=== PATIENT | female | born 1940 | race Caucasian/White ===

== ENCOUNTER 2016-10-26 17:11 | Emergency (ER) | payer MEDICARE, BC ==
[2016-10-26 17:32] VITALS: BP 141/91
--- NOTE | 2016-10-26 17:47 | EDM.PDOC ---
ED HPI GENERAL MEDICAL PROBLEM - General Chief Complaint: Flank Pain Stated Complaint: BACK PAIN/VOMITING Time Seen by Provider: 10/26/16 17:40 Source of Information: Reports: Patient History Limitations: Reports: No Limitations - History of Present Illness INITIAL COMMENTS - FREE TEXT/NARRATIVE: 76-year-old female who 4 hours ago while driving a car developed very sudden right-sided flank pain and nausea. She has had persistent pain since that time as well as persistent nausea and several episodes of vomiting. She has no abdominal pain, chest pain, shortness of breath or fever. No dysuria or other urinary symptoms. No previous symptoms similar to what she is having now. Onset: Sudden Duration: Hour(s): (4 hours ago) Location: Reports: Other (Right flank) Quality: Reports: Sharp, Stabbing Severity: Severe Improves with: Reports: None Worsens with: Reports: None Associated Symptoms: Reports: Nausea/Vomiting. Denies: Fever/Chills, Loss of Appetite, Shortness of Breath Right Flank Pain Score (Numeric/FACES): 9 - Related Data Allergies Allergy/AdvReac Type Severity Reaction Status Date / Time No Known Allergies Allergy Verified 10/26/16 17:34 Home Meds: Home Meds Atenolol 25 mg PO DAILY 07/03/15 [History] Diltiazem HCl [Cardizem Cd] 120 mg PO DAILY 07/03/15 [History] Losartan [Cozaar] 100 mg PO DAILY 07/03/15 [History] Ondansetron 1 tab PO Q8H MDD nausea 05/15/16 [History] Warfarin [Coumadin] 2.5 mg PO DAILY 05/15/16 [History] LORazepam 0.5 mg PO Q4H PRN #12 tablet 05/17/16 [Rx] Past Medical History HEENT History: Reports: Impaired Vision, Other (See Below) Other HEENT History: nerve problem with left eye Cardiovascular History: Reports: Hypertension Respiratory History: Reports: Pneumonia, Recurrent Gastrointestinal History: Reports: Colon Polyp, GERD, Hiatal Hernia 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: Musculoskeletal History: Reports: Osteoarthritis Other Musculoskeletal History: Trigger finger Neurological History: Reports: Headaches, Chronic, Other (See Below) Other Neuro History: 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 Hematologic History: Reports: Anticoagulation Therapy - Past Surgical History Head Surgeries/Procedures: Reports: None GI Surgical History: Reports: Appendectomy, Colonoscopy, Hernia, Abdominal Social & Family History - Family History Family Medical History: Noncontributory Cardiac: Reports: None - Tobacco Use Smoking Status *Q: Never Smoker Second Hand Smoke Exposure: No - Caffeine Use Caffeine Use: Reports: Coffee, Tea - Alcohol Use Days Per Week of Alcohol Use: 0 - Recreational Drug Use Recreational Drug Use: No ED ROS GENERAL - Review of Systems Review Of Systems: See Below Constitutional: Denies: Fever, Chills HEENT: Reports: No Symptoms Respiratory: Denies: Shortness of Breath, Cough Cardiovascular: Denies: Chest Pain GI/Abdominal: Reports: Nausea, Vomiting. Denies: Abdominal Pain : Reports: Flank Pain. Denies: Discharge, Dysuria, Frequency Musculoskeletal: Reports: No Symptoms Skin: Reports: No Symptoms Neurological: Reports: No Symptoms Psychiatric: Reports: No Symptoms ED EXAM, GENERAL - Physical Exam Exam: See Below Exam Limited By: No Limitations General Appearance: Alert, Anxious, Mild Distress (Looks fairly uncomfortable but refusing pain medications initially) Respiratory/Chest: No Respiratory Distress, Lungs Clear Cardiovascular: Regular Rate, Rhythm GI/Abdominal: Soft, Non-Tender Back Exam: Other (I can not reproduce her pain with palpation) Extremities: Pedal Edema (Slight edema of the left lower extremity which is chronic) Neurological: Alert, Oriented, No Motor/Sensory Deficits Psychiatric: Anxious Skin Exam: Warm, Dry Course - Vital Signs Last Recorded V/S: Last Vital Signs Temp 98.1 F 10/26/16 17:34 Pulse 86 10/26/16 17:34 Resp 16 10/26/16 17:34 BP 141/91 H 10/26/16 17:34 Pulse Ox 97 10/26/16 17:34 - Orders/Labs/Meds Labs: Laboratory Tests 10/26/16 Range/Units 17:35 Urine Color Yellow Urine Appearance Cloudy Urine pH 6.0 (4.5-8.0) Ur Specific [place] 1.015 (1.008-1.030) Urine Protein Trace (NEGATIVE) mg/dL Urine Glucose (UA) Normal (NEGATIVE) mg/dL Urine Ketones Negative (NEGATIVE) mg/dL Urine Occult Blood Large (NEGATIVE) Urine Nitrite Negative (NEGATIVE) Urine Bilirubin Negative (NEGATIVE) Urine Urobilinogen 1 (NORMAL) mg/dL Ur Leukocyte Esterase Large (NEGATIVE) Urine RBC Semi-packed H (0-5) Urine WBC Semi-packed H (0-5) Ur Epithelial Cells Many Amorphous Sediment Not seen Urine Bacteria Many Urine Mucus Few Meds: Medications Discontinued Medications Generic Name Dose Route Start Last Admin Trade Name Carlos PRN Reason Stop Dose Admin Sodium Chloride 1,000 mls @ 1,000 mls/hr 10/26/16 18:30 10/26/16 18:34 Normal Saline IV 1,000 mls/hr ASDIRECTED STEPHEN Administration Sodium Chloride 1,000 mls @ 150 mls/hr 10/26/16 18:45 10/26/16 18:48 Normal Saline IV 150 mls/hr ASDIRECTED STEPHEN Administration Ketorolac Tromethamine 30 mg 10/26/16 18:28 10/26/16 18:32 Toradol IVPUSH 10/26/16 18:29 30 mg ONETIME ONE Administration Ondansetron HCl 4 mg 10/26/16 18:13 10/26/16 18:26 Zofran Odt PO 10/26/16 18:14 4 mg ONETIME ONE Administration Tamsulosin HCl 0.4 mg 10/26/16 18:12 10/26/16 18:26 Flomax PO 10/26/16 18:13 0.4 mg ONETIME ONE Administration - Re-Assessments/Exams Free Text/Narrative Re-Assessment/Exam: 10/26/16 17:50 A UA was collected and the patient was sent for a CT scan of the abdomen and pelvis without contrast. 10/26/16 18:17 UA shows packed RBCs WBCs bacteria but also many epithelial cells. Obviously contaminated. The CT scan confirms a distal right ureteral stone with mild hydronephrosis, the stone appears to be 2 mm at the UVJ. 10/26/16 18:29 An IV was started and the patient was given 1 L of normal saline along with 30 mg of Toradol IV after 4 mg of sublingual Zofran. Departure - Departure Time of Disposition: 19:57 Disposition: Home, Self-Care 01 Condition: fair Clinical Impression: Ureteric colic, Right nephrolithiasis - Discharge Information Instructions: Kidney Stones Referrals: PCP,None [Primary Care Provider] - Forms: ED Department Discharge Care Plan Goals: Drink lots of water, use ketorolac every 6-8 hours for pain and Zofran under your tongue for nausea if needed. Return in 12-24 hours if not significantly improved or anytime sooner if worsening or concerns.
[2016-10-26] MEDS ORDERED: Ketorolac 60 MG/2 ML SDV IM ONE (18:12)
[2016-10-26] MEDS ORDERED: Tamsulosin 0.4 MG Cap.ER PO ONE (18:12)
[2016-10-26] MEDS ORDERED: Ondansetron 4 MG Tab.DIS PO ONE (18:13)
[2016-10-26] MEDS ORDERED: Ketorolac 30 MG/ML SDV IVPUSH ONE (18:28)
[2016-10-26] MEDS ORDERED: Sodium Chloride 0.9% 1,000 ML IV SCH ×2 (18:30→18:45)
== END 2016-10-26 19:57 | disposition home or self-care (01) ==
LOC: JP.ED 17:11
DX: N13.2 Hydronephrosis with renal and ureteral calculous obstruction (principal); I10 Essential (primary) hypertension; K21.9 Gastro-esophageal reflux disease without esophagitis; Z90.49 Acquired absence of other specified parts of digestive tract; Z98.890 Other specified postprocedural states; Z79.01 Long term (current) use of anticoagulants; Z79.899 Other long term (current) drug therapy
CPT/HCPCS: 74176; 81001; 96361; 96374; 99284; A9270; J1885; J7040

== ENCOUNTER 2017-02-01 17:32 | Emergency (ER) | payer MEDICARE, BC ==
[2017-02-01 17:50] VITALS: BP 136/79
[2017-02-01] MEDS ORDERED: Diphtheria,Pertussis(Acell),Tetanus Vaccine 0.5 ML SDV IM ONE (18:28)
[2017-02-01] MEDS ORDERED: Lidocaine 1% PF 2 ML SDV INJECT ONE (18:29)
--- NOTE | 2017-02-01 18:32 | EDM.PDOC ---
ED HPI GENERAL MEDICAL PROBLEM - General Chief Complaint: General Stated Complaint: FISH HOOK Time Seen by Provider: 02/01/17 18:20 Source of Information: Reports: Patient, Old Records History Limitations: Reports: No Limitations - History of Present Illness INITIAL COMMENTS - FREE TEXT/NARRATIVE: 76 yo female reached into a tackle box today and accidentally got impaled by a fish hook. Here now for removal. Tetanus not UTD. 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: Other (see below) (none) Right 3-Middle finger Pain Score (Numeric/FACES): 6 - Related Data Allergies Allergy/AdvReac Type Severity Reaction Status Date / Time No Known Allergies Allergy Verified 02/01/17 17:54 Home Meds: Home Meds Atenolol 25 mg PO DAILY 07/03/15 [History] Diltiazem HCl [Cardizem Cd] 120 mg PO DAILY 07/03/15 [History] Losartan [Cozaar] 100 mg PO DAILY 07/03/15 [History] LORazepam 0.5 mg PO Q4H PRN #12 tablet 05/17/16 [Rx] Past Medical History HEENT History: Reports: Impaired Vision, Other (See Below) Other HEENT History: nerve problem with left eye Cardiovascular History: Reports: Hypertension Respiratory History: Reports: Pneumonia, Recurrent Gastrointestinal History: Reports: Colon Polyp, GERD, Hiatal Hernia Genitourinary History: Reports: Renal Calculus 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: Musculoskeletal History: Reports: Osteoarthritis Other Musculoskeletal History: Trigger finger Neurological History: Reports: Headaches, Chronic, Other (See Below) Other Neuro History: 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 Hematologic History: Reports: Anticoagulation Therapy - Past Surgical History Head Surgeries/Procedures: Reports: None GI Surgical History: Reports: Appendectomy, Colonoscopy, Hernia, Abdominal Social & Family History - Family History Family Medical History: Noncontributory Cardiac: Reports: None - Tobacco Use Smoking Status *Q: Never Smoker Second Hand Smoke Exposure: No - Caffeine Use Caffeine Use: Reports: Coffee - Alcohol Use Days Per Week of Alcohol Use: 0 - Recreational Drug Use Recreational Drug Use: No ED ROS GENERAL - Review of Systems Review Of Systems: See Below Constitutional: Reports: No Symptoms Skin: Reports: Wound (finger puncture) Neurological: Reports: No Symptoms Psychiatric: Reports: No Symptoms ED EXAM, GENERAL - Physical Exam Exam: See Below Exam Limited By: No Limitations General Appearance: Alert, WD/WN, No Apparent Distress Extremities: Other (fish hook impaled in R long finger tip) Neurological: Alert, Oriented, CN II-XII Intact, Normal Cognition, No Motor/ Sensory Deficits Psychiatric: Normal Affect, Normal Mood Skin Exam: Warm, Dry, Normal Color, No Rash, Wound/Incision (single jacky of fish hook lodged in the tip of her R long finger. No active bleeding or sign of infection. ) Lymphatic: No Adenopathy ED GENERAL MEDICAL PROCEDURES - Laceration/Wound Repair Right Finger Appearance: Subcutaneous Distal NVT: Neuro & Vascular Intact, No Tendon Injury Anesthetic Type: Local Local Anesthesia - Lidocaine (Xylocaine): 1% Plain Local Anesthetic Volume: 2cc Skin Prep: Providone-Iodine (Betadine) Drain Placement: No Sterile Dressing Applied: Nurse Tetanus Status Addressed: Yes Progress/Comments: Fish hook removal after local infiltration with 2 ml of 1% lidocaine by covering jacky with an 18 g. needle and backing it out. Course - Vital Signs Last Recorded V/S: Last Vital Signs Temp 36.5 C 02/01/17 17:54 Pulse 73 02/01/17 17:54 Resp 16 02/01/17 17:54 BP 136/79 02/01/17 17:48 Pulse Ox 96 02/01/17 17:54 - Orders/Labs/Meds Orders: Active Orders 24 hr Category Date Time Status Vaccines to be Administered [RC] PER UNIT ROUTINE Care 02/01/17 18:29 Active Meds: Medications Discontinued Medications Generic Name Dose Route Start Last Admin Trade Name Freq PRN Reason Stop Dose Admin Diphtheria/Tetanus/Acell Pertussis 0.5 ml 02/01/17 18:28 Adacel IM 02/01/17 18:29 .ONCE ONE Lidocaine HCl 2 ml 02/01/17 18:29 Xylocaine-Mpf 1% INJECT 02/01/17 18:30 ONETIME ONE Lidocaine HCl 5 ml 02/01/17 18:32 Xylocaine-Mpf 1% INJECT 02/01/17 18:33 ONETIME ONE Departure - Departure Time of Disposition: 19:00 Disposition: Home, Self-Care 01 Condition: Good Clinical Impression: Fish hook injury of finger Qualifiers: Encounter type: initial encounter Laterality: right Qualified Code(s): S69.91XA - Unspecified injury of right wrist, hand and finger(s), initial encounter - Discharge Information Referrals: PCP,None [Primary Care Provider] - Forms: ED Department Discharge Additional Instructions: Clean wound twice daily with soap and water. Dry. Apply antibiotic ointment and a new dressing. Recheck for signs of infection. Take acetaminophen as needed for pain relief. - My Orders Last 24 Hours: My Active Orders 02/01/17 18:29 Vaccines to be Administered [RC] PER UNIT ROUTINE - Assessment/Plan Last 24 Hours: My Active Orders 02/01/17 18:29 Vaccines to be Administered [RC] PER UNIT ROUTINE
== END 2017-02-01 19:09 | disposition home or self-care (01) ==
LOC: JP.ED 17:32
DX: S60.452A Superficial foreign body of right middle finger, initial encounter (principal); I10 Essential (primary) hypertension; K21.9 Gastro-esophageal reflux disease without esophagitis; M19.90 Unspecified osteoarthritis, unspecified site; Z23 Encounter for immunization; Z90.49 Acquired absence of other specified parts of digestive tract; Z98.890 Other specified postprocedural states; Z79.899 Other long term (current) drug therapy; Z87.01 Personal history of pneumonia (recurrent); W45.8XXA Other foreign body or object entering through skin, initial encounter
CPT/HCPCS: 10120; 90471; 90715; 99283-25

== ENCOUNTER 2018-10-26 15:18 | Observation (INO) | payer MEDICARE, BC ==
[2018-10-26] MEDS ORDERED: Alum Hydrox/Mag Hydrox/Simeth 15 ML, Lidocaine 2% 15 ML PO ONE ×2 (16:04)
--- NOTE | 2018-10-26 16:10 | EDM.PDOC ---
ED HPI GENERAL MEDICAL PROBLEM - General Chief Complaint: Cardiovascular Problem Stated Complaint: HEART Time Seen by Provider: 10/26/18 16:05 Source of Information: Reports: Patient (neighbor, jacky, sangeetha Irwin to ER today ) History Limitations: Reports: No Limitations - History of Present Illness INITIAL COMMENTS - FREE TEXT/NARRATIVE: Alida is an alert pleasant 78-year-old female presents with abrupt onset of diaphoresis, dizziness, epigastric abdominal discomfort, increase respiratory effort and chest pressure. Patient states she had lunch at approximately noon today she was done with most of her chores for the day therefore 2:00 she went to lay down on her culture and pulled her blanket up. While laying on her couch , she had an episode of dizziness may have passed out sweaty and diaphoretic. Due to patient not feeling well and concerned, she contacted her neighbor, Jacky , who came over to see her a felt that she need to be evaluated in the emergency room. Alida attempted to get up and find her blood pressure cuff but continued to feel dizzy and nauseated, she noted a slight headache. Patient states the nausea, chest pressure and heartburn has resolved for the most part. She continues to feel dizziness with movement. Alida is concern regarding the dizziness and blacking out that is new for her. Patient states the nausea, headache and chest pressure is resolved at this point in time. Onset: Today, Sudden Onset Date: 10/26/18 Onset Time: 14:00 Duration: Improving Location: Reports: Chest, Abdomen Improves with: Reports: None Worsens with: Reports: None Chest Pain Score (Numeric/FACES): 7 - Related Data Allergies Allergy/AdvReac Type Severity Reaction Status Date / Time No Known Allergies Allergy Verified 10/03/18 11:06 Home Meds: Home Meds Diltiazem HCl [Cardizem Cd] 120 mg PO DAILY 07/03/15 [History] Losartan [Cozaar] 100 mg PO DAILY 07/03/15 [History] Latanoprost 1 drop TOP BEDTIME 10/26/18 [History] Omeprazole 20 mg PO DAILY 10/26/18 [History] Past Medical History HEENT History: Reports: Impaired Vision, Other (See Below) Other HEENT History: nerve problem with left eye. 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: Musculoskeletal History: Reports: Osteoarthritis Other Musculoskeletal History: Trigger finger Neurological History: Reports: Headaches, Chronic, Other (See Below) Other Neuro History: 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 Psychiatric History: Reports: Depression Hematologic History: Reports: Anticoagulation Therapy - Past Surgical History Head Surgeries/Procedures: Reports: None GI Surgical History: Reports: Appendectomy, Colonoscopy, Hernia, Abdominal Social & Family History - Family History Family Medical History: Noncontributory Cardiac: Reports: None - Tobacco Use Smoking Status *Q: Never Smoker - Caffeine Use Caffeine Use: Reports: None - Recreational Drug Use Recreational Drug Use: No ED ROS GENERAL - Review of Systems Review Of Systems: ROS reveals no pertinent complaints other than HPI. (patient is anxious regarding symptoms but able to answer all questions appropriately) Respiratory: Reports: No Symptoms, Other (increased respiratory rate noted ) Cardiovascular: Reports: Chest Pain, Lightheadedness Neurological: Reports: Dizziness, Headache ED EXAM, GENERAL - Physical Exam Exam: See Below Exam Limited By: No Limitations General Appearance: Alert, WD/WN, No Apparent Distress, Anxious, Other ( increased respiratory rate noted ) Eye Exam: Bilateral Eye: EOMI, PERRL Ears: Normal External Exam, Normal Canal (cerumen), Hearing Grossly Normal, Normal TMs ( unable to fully visualize due to cerumen) Ear Exam: Bilateral Ear: Auricle Normal, Canal Normal, TM normal Nose: Normal Inspection, Normal Mucosa, No Blood Throat/Mouth: Normal Inspection, Normal Lips, Normal Teeth, Normal Gums, Normal Oropharynx, Normal Voice, No Airway Compromise Head: Normocephalic Neck: Normal Inspection, Supple, Non-Tender, Full Range of Motion Respiratory/Chest: No Respiratory Distress, Lungs Clear, Normal Breath Sounds, No Accessory Muscle Use, Other (slight pain to palpation left inferior sternal border) Cardiovascular: Normal Peripheral Pulses, Regular Rate, Rhythm GI/Abdominal: Normal Bowel Sounds (limited due to body habitus), Soft, Non- Tender, No Organomegaly, No Distention, No Abnormal Bruit, No Mass Back Exam: Normal Inspection, Full Range of Motion, NT Extremities: Normal Inspection, Normal Range of Motion, Non-Tender, Normal Capillary Refill, No Pedal Edema Neurological: Alert, Oriented, CN II-XII Intact, Normal Cognition, Normal Gait, Normal Reflexes, No Motor/Sensory Deficits Psychiatric: Normal Affect, Normal Mood, Anxious Skin Exam: Warm, Dry, Intact, Normal Color, No Rash EKG INTERPRETATION EKG Date: 10/26/18 Time: 17:24 Rhythm: NSR Rate (Beats/Min): 96 [place]: Normal (COMPARED TO MARCH 2016) P-Wave: Variable QRS: LBBB (New LBBB Since October 03 Lex[address] testing) ST-T: Normal QT: Prolonged Comparison: Change From Previous EKG Course - Vital Signs Last Recorded V/S: Last Vital Signs Temp 35.7 C 10/26/18 15:43 Pulse 94 10/26/18 18:04 Resp 20 10/26/18 18:04 BP 155/94 H 10/26/18 18:04 Pulse Ox 98 10/26/18 18:04 - Orders/Labs/Meds Orders: Active Orders 24 hr Category Date Time Status Ambulate [RC] PER UNIT ROUTINE Care 10/26/18 18:15 Active EKG Documentation Completion [RC] ASDIRECTED Care 10/26/18 17:18 Active EKG 12 Lead [EK] Routine Ther 10/26/18 17:18 Ordered Labs: Laboratory Tests 10/26/18 10/26/18 10/26/18 Range/Units 17:17 17:17 17:43 WBC 7.6 (4.5-11.0) K/uL RBC 4.97 (3.30-5.50) M/uL Hgb 12.7 (12.0-15.0) g/dL Hct 40.1 (36.0-48.0) % MCV 81 (80-98) fL MCH 26 L (27-31) pg MCHC 32 (32-36) % Plt Count 243 (150-400) K/uL Neut % (Auto) 81 H (36-66) % Lymph % (Auto) 14 L (24-44) % [place] % (Auto) 4 (2-6) % Eos % (Auto) 1 L (2-4) % Baso % (Auto) 0 (0-1) % Sodium 141 (140-148) mmol/L Potassium 3.9 (3.6-5.2) mmol/L Chloride 105 (100-108) mmol/L Carbon Dioxide 27 (21-32) mmol/L Anion Gap 8.9 (5.0-14.0) mmol/L BUN 18 D (7-18) mg/dL Creatinine 0.9 (0.6-1.0) mg/dL Est Cr Clr Drug Dosing 43.77 mL/min Estimated GFR (MDRD) > 60 (>60) Glucose 171 H (74-106) mg/dL Calcium 8.9 (8.5-10.1) mg/dL Magnesium 1.9 (1.8-2.4) mg/dL Total Bilirubin 0.3 D (0.2-1.0) mg/dL AST 15 (15-37) U/L ALT 16 (12-78) U/L Alkaline Phosphatase 160 H (46-116) U/L Troponin I < 0.017 (0.000-0.056) ng/mL Total Protein 7.0 (6.4-8.2) g/dL Albumin 3.3 L (3.4-5.0) g/dL Globulin 3.7 H (2.3-3.5) g/dL Albumin/Globulin Ratio 0.9 L (1.2-2.2) Meds: Medications Discontinued Medications Generic Name Dose Route Start Last Admin Trade Name Freq PRN Reason Stop Dose Admin Al Hydroxide/Mg Hydroxide 15 0 ml 10/26/18 16:04 10/26/18 16:15 ml/ Lidocaine HCl 15 ml PO 10/26/18 16:05 30 ml ONETIME ONE Administration - Re-Assessments/Exams Free Text/Narrative Re-Assessment/Exam: Alert 78-year-old female presents with symptoms concerning for cardiac arrhythmia versus myocardial infarction including lightheadedness, dizziness, diaphoretic nausea and headache. Majority of symptoms and subsequently resolved. Laboratory studies did not reveal any acute concerning findings. Patient did have a stress test scan. Patient had unremarkable Celexa scan portion of the Cardiolite study. There is no EKG rhythm changes during the study and no significant symptoms. The nuclear medicine report recent for exam lightheadedness and chest pressure impression no evidence of significant myocardial ischemia or infarction. Left ventricular ejection fracture 66. No acute changes noted. EKG was reviewed from time of stress test and EKG today shows a significant new left bundle branch block. Patient does have some subtle laboratory studies the troponin is 0.07 or negative at this point in time. Patient does live home alone. I feel strongly that admission under observation status for cardiac monitoring would be warranted along with repeat troponin later this afternoon or evening to ensure this wasn't an actual cardiac events today. Patient spoke with her family who will be presents tomorrow and they're comfortable with admission at this point in time. 10/26/18 18:44 Departure - Departure Time of Disposition: 18:46 Disposition: Admitted As Inpatient 66 Condition: Good Clinical Impression: Chest pain, Acute electrocardiogram changes Referrals: Kavita Davis PA [Primary Care Provider] - Forms: ED Department Discharge - Problem List & Annotations (1) Acute electrocardiogram changes SNOMED Code(s): 784047177 Code(s): R94.31 - ABNORMAL ELECTROCARDIOGRAM [ECG] [EKG] Status: Acute Current Visit: Yes Annotation/Comment:: New LBBB on EKG today (2) Chest pain SNOMED Code(s): 57945941 Code(s): R07.9 - CHEST PAIN, UNSPECIFIED Status: Acute Current Visit: Yes - My Orders Last 24 Hours: My Active Orders 10/26/18 17:18 EKG Documentation Completion [RC] ASDIRECTED EKG 12 Lead [EK] Routine 10/26/18 18:15 Ambulate [RC] PER UNIT ROUTINE - Assessment/Plan Last 24 Hours: My Active Orders 10/26/18 17:18 EKG Documentation Completion [RC] ASDIRECTED EKG 12 Lead [EK] Routine 10/26/18 18:15 Ambulate [RC] PER UNIT ROUTINE
--- NOTE | 2018-10-26 16:36 | CRLCR ---
INDICATION: 2 imageschest pain-pressure TECHNIQUE: Chest 2 views. COMPARISON: None. FINDINGS: Cardiovascular and mediastinum: Heart size and vasculature are normal in caliber and appearance. Mediastinum is within normal limits. Lungs and pleural spaces: Lungs are clear. No sign of infiltrate or mass. No sign of pleural effusion. No pneumothorax. Bones and soft tissues: No significant findings. IMPRESSION: Unremarkable chest. Dictated by: Bradly Nash MD @ 10/26/2018 16:34:35 (Electronically Signed)
--- NOTE | 2018-10-26 19:03 | PCM.HP ---
H&P History of Present Illness - General Date of Service: 10/26/18 Admit Problem/Dx: Admission Diagnosis/Problem Admission Diagnosis/Problem Syncope Source of Information: Patient, Provider History Limitations: Reports: No Limitations - History of Present Illness Initial Comments - Free Text/Narative: CC: I got dizzy and passed out Alida presents to the ER after an episode of syncope that occurred about 1300 today. She had just finished vacuuming her house and doing some cooking and baking. She sat down to watch a movie and then suddenly became dizzy/whoozy and passed out. She is not sure how long she was out. After she woke up she felt very dizzy and nauseated and was diaphoretic. She also had a mild headache. She did not report chest pain at that time. She did not feel short of breath. Symptoms have slowly subsided since that time and she is now symptom-free and feeling back to her usual self. She said that she did not have any symptoms while she was busy doing her chores or cooking today. She has a good functional status and has not been limited by chest pain or shortness of breath. No difficulties with fevers or chills. No change in bowel or bladder habits. No history of syncope. She had a stress test done about 3 weeks ago which was unremarkable. EKG at that time did not show left bundle branch block. Laboratory workup in the emergency room was unremarkable. EKG did show a new left bundle branch block. Vital signs have been stable. Patient has been asymptomatic. She'll be admitted for telemetry and repeat troponin testing. 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 Psychiatric History: Reports: Depression Hematologic History: Reports: Anticoagulation Therapy - Past Surgical History Head Surgeries/Procedures: Reports: None GI Surgical History: Reports: Appendectomy, Colonoscopy, Hernia, Abdominal Social & Family History - Family History Family Medical History: Noncontributory Cardiac: Reports: None - Tobacco Use Smoking Status *Q: Never Smoker - Caffeine Use Caffeine Use: Reports: None - Alcohol Use Alcohol Use History: No - Recreational Drug Use Recreational Drug Use: No H&P Review of Systems - Review of Systems: Review Of Systems: See Below Free Text/Narrative: A complete 12 point review of systems was obtained. Pertinent positives and negatives are noted in the history of present illness. All other systems were reviewed and were negative except as noted. Exam - Exam Exam: See Below - Vital Signs Vital Signs: Last Vital Signs Temp 35.7 C 10/26/18 15:43 Pulse 94 10/26/18 18:04 Resp 20 10/26/18 18:04 BP 155/94 H 10/26/18 18:04 Pulse Ox 98 10/26/18 18:04 Weight: 74.389 kg - Exam Quality Assessment: No: Supplemental Oxygen General: Alert, Oriented, Cooperative. No: Mild Distress HEENT: Conjunctiva Clear, Mucosa Moist & Parsons. No: Scleral Icterus Neck: Supple, Trachea Midline. No: Lymphadenopathy Lungs: Clear to Auscultation, Normal Respiratory Effort Cardiovascular: Regular Rate, Regular Rhythm. No: Systolic Murmur GI/Abdominal Exam: Normal Bowel Sounds, Soft, Non-Tender, No Distention Back Exam: Normal Inspection, Full Range of Motion Extremities: No Pedal Edema. No: Increased Warmth Peripheral Pulses: 2+: Dorsalis Pedis (L), Dorsalis Pedis (R) Skin: Warm, Dry. No: Rash Neuro Extensive - Mental Status: Alert, Oriented x3, Nl Response to Commands Neuro Extensive - Motor, Sensory, Reflexes: No: Dysarthria, Abnormal Motor, Tremor Psychiatric: Alert, Normal Affect - Patient Data Lab Results Last 24 hrs: Laboratory Results - last 24 hr 10/26/18 10/26/18 10/26/18 Range/Units 17:17 17:17 17:43 WBC 7.6 (4.5-11.0) K/uL RBC 4.97 (3.30-5.50) M/uL Hgb 12.7 (12.0-15.0) g/dL Hct 40.1 (36.0-48.0) % MCV 81 (80-98) fL MCH 26 L (27-31) pg MCHC 32 (32-36) % Plt Count 243 (150-400) K/uL Neut % (Auto) 81 H (36-66) % Lymph % (Auto) 14 L (24-44) % [place] % (Auto) 4 (2-6) % Eos % (Auto) 1 L (2-4) % Baso % (Auto) 0 (0-1) % Sodium 141 (140-148) mmol/L Potassium 3.9 (3.6-5.2) mmol/L Chloride 105 (100-108) mmol/L Carbon Dioxide 27 (21-32) mmol/L Anion Gap 8.9 (5.0-14.0) mmol/L BUN 18 D (7-18) mg/dL Creatinine 0.9 (0.6-1.0) mg/dL Est Cr Clr Drug Dosing 43.77 mL/min Estimated GFR (MDRD) > 60 (>60) Glucose 171 H (74-106) mg/dL Calcium 8.9 (8.5-10.1) mg/dL Magnesium 1.9 (1.8-2.4) mg/dL Total Bilirubin 0.3 D (0.2-1.0) mg/dL AST 15 (15-37) U/L ALT 16 (12-78) U/L Alkaline Phosphatase 160 H (46-116) U/L Troponin I < 0.017 (0.000-0.056) ng/mL Total Protein 7.0 (6.4-8.2) g/dL Albumin 3.3 L (3.4-5.0) g/dL Globulin 3.7 H (2.3-3.5) g/dL Albumin/Globulin Ratio 0.9 L (1.2-2.2) Result Diagrams: 10/26/18 17:17 10/26/18 17:17 Imaging Impressions Last 24 hrs: CXR - images personally reviewed - lungs are clear with no mass, infiltrate or effusion. Heart size is normal. EKG INTERPRETATION EKG Date: 10/26/18 Rhythm: NSR Rate (Beats/Min): 96 Stirling: LAD-Left Stirling Deviation P-Wave: Present QRS: LBBB ST-T: Normal QT: Normal Comparison: Change From Previous EKG EKG Interpretation Comments: image personally reviewed - EKG from early October did not have LBBB *Q Meaningful Use (ADM) - VTE Risk Assess *Q Each Risk Factor Represents 1 Point: Obesity ( BMI > 25 kg/m2) Total Score 1 Point Risk Factors: 1 Each Risk Factor Represents 2 Points: None Total Score 2 Point Risk Factors: 0 Each Risk Factor Represents 3 Points: Age 75 Years or Greater Total Score 3 Point Risk Factors: 3 Each Risk Factor Represents 5 Points: None Total Score 5 Point Risk Factors: 0 Venous Thromboembolism Risk Factor Score *Q: 4 - Problem List (1) Syncope SNOMED Code(s): 741248172 ICD Code: R55 - SYNCOPE AND COLLAPSE Status: Acute Current Visit: Yes Qualifiers: Syncope type: unspecified Qualified Code(s): R55 - Syncope and collapse (2) New onset left bundle branch block (LBBB) SNOMED Code(s): 62034543 ICD Code: I44.7 - LEFT BUNDLE-BRANCH BLOCK, UNSPECIFIED Status: Acute Current Visit: Yes Problem List Initiated/Reviewed/Updated: Yes Orders Last 24hrs: Active Orders 24 hr Category Date Time Status Patient Status Manage Transfer [TRANSFER] Routine ADT 10/26/18 18:56 Ordered Ambulate [RC] PER UNIT ROUTINE Care 10/26/18 18:15 Active EKG Documentation Completion [RC] ASDIRECTED Care 10/26/18 17:18 Active Resuscitation Status Routine Resus Stat 10/26/18 18:56 Ordered EKG 12 Lead [EK] Routine Ther 10/26/18 17:18 Ordered Assessment/Plan Comment:: ASSESSMENT AND PLAN - Syncope and collapse - etiology not entirely clear. Most concerning thing would be dysrhythmia. Vasovagal syncope could also be considered. There is a new left bundle branch block on the EKG which was not present prior. Stress test 3 weeks ago was completely unremarkable and she had a normal ejection fraction and no wall motion abnormalities. Excellent functional status. Vital signs are stable. -Cardiac monitoring -Repeat troponin testing Left bundle branch block - not present about 3 weeks ago. No evidence of ischemia on the stress test at that time. Excellent functional status. -Cardiac monitoring as above Essential hypertension - blood pressure has been well-controlled with 2 medications. Maintenance issues - - DVT prophylaxis - ambulatory - GI prophylaxis - patient will continue home PPI when she gets home - Nutrition - regular diet - Lamar catheter - not indicated CODE STATUS - full code Admission justification - patient will be referred to observation for overnight cardiac monitoring and repeat troponin testing Disposition - I would anticipate discharge to home tomorrow Primary care physician - Kavita Lindsay M.D.
[2018-10-26] MEDS ORDERED: Ondansetron 4 MG Tab.DIS PO PRN (19:51)
[2018-10-26] MEDS ORDERED: Sodium Chloride 0.9% 10 ML Syringe FLUSH PRN (19:51)
[2018-10-26] MEDS ORDERED: Acetaminophen 325 MG Tab PO PRN (19:51)
[2018-10-26] MEDS ORDERED: LORazepam 2 MG/ML SDV IVPUSH PRN (19:51)
[2018-10-27 07:44] VITALS: BP 140/70
--- NOTE | 2018-10-27 09:17 | PCM.DCSUM1 ---
Discharge Summary - Hospital Course Brief History: 78-year-old female with history of hypertension who presented after an episode of syncope. Workup in the emergency room was unremarkable. She was admitted for observation and cardiac monitoring. Diagnosis: Stroke: No - Discharge Data Discharge Date: 10/27/18 Discharge Disposition: Home, Self-Care 01 Condition: Good - Discharge Diagnosis/Problem(s) (1) Syncope SNOMED Code(s): 208125200 ICD Code: R55 - SYNCOPE AND COLLAPSE Status: Acute Current Visit: Yes Qualifiers: Syncope type: unspecified Qualified Code(s): R55 - Syncope and collapse (2) New onset left bundle branch block (LBBB) SNOMED Code(s): 49460864 ICD Code: I44.7 - LEFT BUNDLE-BRANCH BLOCK, UNSPECIFIED Status: Acute Current Visit: Yes - Patient Summary/Data Hospital Course: Alida presented to the emergency room after an episode of syncope. Workup in the emergency room included laboratory studies and an EKG as well as chest x- ray. Laboratory studies were unremarkable including an undetectable troponin. EKG did reveal a new left bundle branch block which had changed from 3 weeks prior. Chest x-ray was unremarkable. Vital signs were stable. She was admitted for cardiac monitoring with a new left bundle branch block. A second troponin collected several hours after the first was undetectable as well. There were no abnormalities on cardiac monitoring overnight. She does have a persistent left bundle branch block. She has been up and walking around without any symptoms. She did recently have a stress test which was unremarkable including a nuclear medicine portion to the stress test. The exact cause for her syncope is not entirely clear but differential could include vasovagal syncope versus dysrhythmia. She is stable at this time and safe for discharge home. She has recurrence of her symptoms she may benefit from extended monitoring such as a Holter monitor. She'll be discharged home with no medication changes. Follow-up will be as needed if she has recurrence of her symptoms. - Patient Instructions Diet: Regular Diet as Tolerated Activity: As Tolerated Driving: May Drive Today Showering/Bathing: May Shower Notify Provider of: Fever, Increased Pain Other/Special Instructions: 1. You were in the hospital for observation after an episode of syncope. In the emergency room we discovered that the electrical activity in your heart has changed and you now have a left bundle branch block. This means that your heart does not beat in synchrony as it did before. At this time there is no specific treatment needed. There was no evidence that you had a heart attack. You recently had a stress test which was very unremarkable. You may return to your usual activities without any limitations. You should seek immediate follow-up if you have return of symptoms such as dizziness or syncope. 2. Continue your usual home medications as previously prescribed. 3. Seek medical attention if you have fever greater than 101, significant dizziness , presyncope, syncope or chest pain/tightness. - Discharge Plan *PRESCRIPTION DRUG MONITORING PROGRAM REVIEWED*: Not Applicable *COPY OF PRESCRIPTION DRUG MONITORING REPORT IN PATIENT MARGA: Not Applicable Home Medications: Home Meds Diltiazem HCl [Cardizem Cd] 120 mg PO DAILY 07/03/15 [History] Losartan [Cozaar] 100 mg PO DAILY 07/03/15 [History] Latanoprost 1 drop TOP BEDTIME 10/26/18 [History] Omeprazole 20 mg PO DAILY 10/26/18 [History] Oxygen Therapy Mode: Room Air Patient Handouts: Near-Syncope Referrals: Kavita Davis PA [Primary Care Provider] - (f/u as needed after the hospital stay ) - Discharge Summary/Plan Comment DC Time >30 min.: No - Patient Data Vitals - Most Recent: Last Vital Signs Temp 35.9 C 10/27/18 07:17 Pulse 72 10/27/18 07:17 Resp 16 10/27/18 07:17 BP 140/70 10/27/18 07:17 Pulse Ox 94 L 10/27/18 07:17 Weight - Most Recent: 77.111 kg I&O - Last 24 hours: Intake & Output 10/26/18 10/27/18 10/27/18 22:59 06:59 14:59 Intake Total 250 Balance 250 Lab Results - Last 24 hrs: Laboratory Results - last 24 hr 10/26/18 10/26/18 10/26/18 Range/Units 17:17 17:17 17:43 WBC 7.6 (4.5-11.0) K/uL RBC 4.97 (3.30-5.50) M/uL Hgb 12.7 (12.0-15.0) g/dL Hct 40.1 (36.0-48.0) % MCV 81 (80-98) fL MCH 26 L (27-31) pg MCHC 32 (32-36) % Plt Count 243 (150-400) K/uL Neut % (Auto) 81 H (36-66) % Lymph % (Auto) 14 L (24-44) % [place] % (Auto) 4 (2-6) % Eos % (Auto) 1 L (2-4) % Baso % (Auto) 0 (0-1) % Sodium 141 (140-148) mmol/L Potassium 3.9 (3.6-5.2) mmol/L Chloride 105 (100-108) mmol/L Carbon Dioxide 27 (21-32) mmol/L Anion Gap 8.9 (5.0-14.0) mmol/L BUN 18 D (7-18) mg/dL Creatinine 0.9 (0.6-1.0) mg/dL Est Cr Clr Drug Dosing 43.77 mL/min Estimated GFR (MDRD) > 60 (>60) Glucose 171 H (74-106) mg/dL Calcium 8.9 (8.5-10.1) mg/dL Magnesium 1.9 (1.8-2.4) mg/dL Total Bilirubin 0.3 D (0.2-1.0) mg/dL AST 15 (15-37) U/L ALT 16 (12-78) U/L Alkaline Phosphatase 160 H (46-116) U/L Troponin I < 0.017 (0.000-0.056) ng/mL Total Protein 7.0 (6.4-8.2) g/dL Albumin 3.3 L (3.4-5.0) g/dL Globulin 3.7 H (2.3-3.5) g/dL Albumin/Globulin Ratio 0.9 L (1.2-2.2) / Range/Units 20:55 WBC (4.5-11.0) K/uL RBC (3.30-5.50) M/uL Hgb (12.0-15.0) g/dL Hct (36.0-48.0) % MCV (80-98) fL MCH (27-31) pg MCHC (32-36) % Plt Count (150-400) K/uL Neut % (Auto) (36-66) % Lymph % (Auto) (24-44) % [place] % (Auto) (2-6) % Eos % (Auto) (2-4) % Baso % (Auto) (0-1) % Sodium (140-148) mmol/L Potassium (3.6-5.2) mmol/L Chloride (100-108) mmol/L Carbon Dioxide (21-32) mmol/L Anion Gap (5.0-14.0) mmol/L BUN (7-18) mg/dL Creatinine (0.6-1.0) mg/dL Est Cr Clr Drug Dosing mL/min Estimated GFR (MDRD) (>60) Glucose (74-106) mg/dL Calcium (8.5-10.1) mg/dL Magnesium (1.8-2.4) mg/dL Total Bilirubin (0.2-1.0) mg/dL AST (15-37) U/L ALT (12-78) U/L Alkaline Phosphatase (46-116) U/L Troponin I < 0.017 (0.000-0.056) ng/mL Total Protein (6.4-8.2) g/dL Albumin (3.4-5.0) g/dL Globulin (2.3-3.5) g/dL Albumin/Globulin Ratio (1.2-2.2) Med Orders - Current: Current Medications Acetaminophen (Tylenol) 650 mg PO Q4H PRN PRN Reason: Pain (Mild 1-3)/fever Lorazepam (Ativan) 0.5 mg IVPUSH Q4H PRN PRN Reason: Nausea/Vomiting Ondansetron HCl (Zofran Odt) 4 mg PO Q6H PRN PRN Reason: Nausea able to take PO Senna/Docusate Sodium (Senna Plus) 1 tab PO BID PRN PRN Reason: Constipation Sodium Chloride (Saline Flush) 10 ml FLUSH ASDIRECTED PRN PRN Reason: Keep Vein Open Discontinued Medications Al Hydroxide/Mg Hydroxide 15 (ml/ Lidocaine HCl 15 ml) 0 ml PO ONETIME ONE Stop: 10/26/18 16:05 Last Admin: 10/26/18 16:15 Dose: 30 ml - Exam Quality Assessment: Denies: Supplemental Oxygen General: Reports: Alert, Oriented, Cooperative, No Acute Distress Lungs: Reports: Normal Respiratory Effort Cardiovascular: Reports: Regular Rate, Regular Rhythm GI/Abdominal Exam: Soft, No Distention Extremities: No Pedal Edema Psy/Mental Status: Reports: Alert, Normal Affect
== END 2018-10-27 10:15 | disposition home or self-care (01) ==
LOC: JP.ED 15:18 → JP.MS 18:56
PROVIDERS: ADMIT Internal Medicine; ATTEND Internal Medicine
DX: R55 Syncope and collapse (principal); I10 Essential (primary) hypertension; I44.7 Left bundle-branch block, unspecified; K21.9 Gastro-esophageal reflux disease without esophagitis; M19.90 Unspecified osteoarthritis, unspecified site; Z79.899 Other long term (current) drug therapy
CPT/HCPCS: 36415; 71046; 80053; 83735; 84484; 85025; 93005; 99285; A9270; G0378

== ENCOUNTER 2019-02-22 20:53 | Emergency (ER) | payer MEDICARE, BC ==
[2019-02-22 21:21] VITALS: BP 157/92; PULSE 89
--- NOTE | 2019-02-22 22:21 | EDM.PDOC ---
ED HPI GENERAL MEDICAL PROBLEM - General Chief Complaint: Syncope Stated Complaint: VOMITING Time Seen by Provider: 02/22/19 21:45 Source of Information: Reports: Patient, Family History Limitations: Reports: No Limitations - History of Present Illness INITIAL COMMENTS - FREE TEXT/NARRATIVE: 78-year-old female had a syncopal episode tonight, was incontinent while passed out. When she woke up she was very diaphoretic and pale, nauseated and had several bouts of emesis. She called her daughter who brought her into the emergency room, she now feels back to normal. Apparently this is a recurring problem, she has had a cardiology workup and if there was another episode she was supposed to inform the vertica architect and they will consider a pacemaker. She is obviously having very significant vasovagal syncopal episodes with bradycardia. Her vitals are current this time. She has a slight bump on her right occipital scalp but no other injury. Onset: Sudden Associated Symptoms: Reports: Nausea/Vomiting. 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: Musculoskeletal History: Reports: Osteoarthritis Other Musculoskeletal History: Trigger finger Neurological History: Reports: Headaches, Chronic, Other (See Below) Other Neuro History: 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 Psychiatric History: Reports: Depression Hematologic History: Reports: Anticoagulation Therapy - Past Surgical History Head Surgeries/Procedures: Reports: None Cardiovascular Surgical History: Reports: None GI Surgical History: Reports: Appendectomy, Colonoscopy, Hernia, Abdominal Social & Family History - Family History Family Medical History: Noncontributory Cardiac: Reports: None - Tobacco Use Smoking Status *Q: Never Smoker - Caffeine Use Caffeine Use: Reports: Coffee - Recreational Drug Use Recreational Drug Use: No ED ROS GENERAL - Review of Systems Review Of Systems: See Below Constitutional: Denies: Fever, Chills HEENT: Reports: No Symptoms Respiratory: Denies: Shortness of Breath Cardiovascular: Denies: Chest Pain GI/Abdominal: Reports: Nausea, Vomiting. Denies: Abdominal Pain : Reports: Incontinence Skin: Reports: Other (Slight discomfort to the right parietal scalp, no significant swelling, abrasion or bruising) Neurological: Reports: Syncope. Denies: Headache - Physical Exam Exam: See Below Exam Limited By: No Limitations General Appearance: Alert, No Apparent Distress Eye Exam: Bilateral Eye: EOMI, Normal Inspection Head Exam: Other (no objective evidence of injury to the scalp, no swelling, hematoma, bruising or abrasion. She has a small area of tenderness.) Neck: Supple, Non-Tender Respiratory/Chest: No Respiratory Distress, Lungs Clear Cardiovascular: Regular Rate, Rhythm. No: Extra Beats GI/Abdominal: Soft, Non-Tender Neuro Exam (Abbreviated): Alert, Oriented, No Motor/Sensory Deficits Skin Exam: Warm, Dry Course - Vital Signs Last Recorded V/S: Last Vital Signs Temp 95.9 F 02/22/19 21:21 Pulse 89 02/22/19 21:21 Resp 20 02/22/19 21:21 BP 157/92 H 02/22/19 21:21 Pulse Ox 92 L 02/22/19 21:21 - Re-Assessments/Exams Free Text/Narrative Re-Assessment/Exam: 02/22/19 22:19 Patient was monitored for half hour and remained in a normal sinus rhythm any symptomatic. She was encouraged to lay down if her symptoms recur, and call her primary provider next week to inform them that she's had yet another vasovagal episode so they can follow-up and consider her pacemaker. She can return to the emergency room at any time if symptoms are recurring or more profound or persistent. Departure - Departure Time of Disposition: 22:52 Disposition: Home, Self-Care 01 Clinical Impression: Vasovagal syncopes - Discharge Information Instructions: Syncope, [id number] Referrals: Kavita Davis PA [Primary Care Provider] - Forms: ED Department Discharge Care Plan Goals: Continue current medications, stay hydrated, and if symptoms are recurring lye down to avoid worsening of symptoms. Call your primary providers next week to inform them that you have had a syncopal episode this weekend. Return anytime if symptoms are recurring and persistent.
== END 2019-02-22 22:52 | disposition home or self-care (01) ==
LOC: JP.ED 20:53
DX: R55 Syncope and collapse (principal); K21.9 Gastro-esophageal reflux disease without esophagitis; I10 Essential (primary) hypertension; I25.2 Old myocardial infarction; Z79.899 Other long term (current) drug therapy; Z90.49 Acquired absence of other specified parts of digestive tract
CPT/HCPCS: 99283

== ENCOUNTER 2019-04-29 09:43 | Day surgery (SDC) | payer MEDICARE, BC ==
[~2019-04-29 09:43] MED LIST: Midazolam 1 MG/ML 2 ML SDV ONE; Propofol 200 MG/20 ML SDV ONE; fentaNYL 100 MCG/2 ML SDV ONE
[2019-04-29 10:13] VITALS: BP 131/85; PULSE 77
[2019-04-29] MEDS ORDERED: Lidocaine 1% with EPINEPHrine 1:100,000 50 ML MDV ONE (10:13)
[2019-04-29] MEDS ORDERED: ceFAZolin 2 GM in Sodium Chloride 0.9% 50 ML IV ONE (10:15)
[2019-04-29] MEDS ORDERED: Dextrose 5%-Lactated Ringers 1,000 ML IV SCH (10:15)
--- NOTE | 2019-05-03 10:34 | PN ---
DATE OF SERVICE: 04/29/2019 This is an 79-year-old who is referred for a left temporal artery biopsy. She has headaches involving the left temporal area extending across the midline of the frontal area. All of her examination of her past medical history revealed that the patient had already undergone bilateral temporal artery biopsies which were negative. The patient had undergone some interventional neurology treatment for the headaches, and given this, the procedure was canceled. At this point, she will be set up for a Neurology appointment as soon as possible to address the ongoing problem with the headaches. Kev Romero MD Job #: [id number]
== END 2019-04-29 10:30 | disposition home or self-care (01) ==
LOC: JP.SDS 09:43
PROVIDERS: ATTEND Surgery
DX: R51 Headache (principal); I10 Essential (primary) hypertension; R78.5 Finding of other psychotropic drug in blood; K21.9 Gastro-esophageal reflux disease without esophagitis; H40.9 Unspecified glaucoma; Z53.8 Procedure and treatment not carried out for other reasons
CPT/HCPCS: J2250; J2704; J3010

== ENCOUNTER 2023-03-08 11:11 | Emergency (ER) | payer MEDICARE, BC ==
[2023-03-08 11:28] VITALS: BP 144/79; PULSE 69
[2023-03-08 11:42] LABS: BASOPHILS ABSOLUTE AUTO 0.03 K/uL (0.00-0.10); BASOPHILS PERCENT AUTO 0.5 % (0.1-1.3); EOSINOPHILS ABSOLUTE AUTO 0.13 K/uL (0.00-0.40); EOSINOPHILS PERCENT AUTO 2.3 % (0.0-5.4); HEMATOCRIT 42.3 % (34.3-46.0); IMMATURE GRAN PERCENT AUTO 0.4 % (0.0-0.7); LYMPHOCYTES ABSOLUTE AUTO 1.49 K/uL (0.8-3.3); LYMPHOCYTES PERCENT AUTO 26.4 % (11.4-47.7); MEAN CORPUSCULAR HEMOGLOBIN 27.2 pg (31.6-35.5); MEAN CORPUSCULAR HGB CONC 33.1 g/dL (31.6-35.5); MEAN CORPUSCULAR VOLUME 82.3 fL (81.4-99.0); MONOCYTES ABSOLUTE AUTO 0.34 K/uL (0.20-0.90); NEUTROPHILS ABSOLUTE AUTO 3.64 K/uL (1.0-7.6); NEUTROPHILS PERCENT AUTO 64.4 % (40.0-78.1); PLATELET COUNT,PLT 244 K/uL (130-375); RED BLOOD CELL COUNT 5.14 M/uL (3.77-5.24); WHITE BLOOD CELL COUNT,WBC 5.7 K/uL (3.2-11.0)
[2023-03-08 11:43] LABS: IMMATURE GRAN ABSOLUTE AUTO 0.02 K/uL (0.00-0.23)
[2023-03-08 12:05] LABS: ANION GAP 10.5 mmol/L (5.0-14.0); BLOOD UREA NITROGEN,BUN 12 mg/dL (7-18); CARBON DIOXIDE,CO2 28 mmol/L (21-32); CHLORIDE,CL 103 mmol/L (100-108); CREATININE 0.8 mg/dL (0.6-1.0); ESTIMATED GFR 73 mL/min (>60); GLUCOSE RANDOM 103 mg/dL (74-106); MAGNESIUM 1.9 mg/dL (1.8-2.4); POTASSIUM,K 4.1 mmol/L (3.6-5.2); SODIUM,NA 141 mmol/L (140-148); TROPONIN I HIGH SENSITIVITY 14.1 pg/mL (<=60.3)
== END 2023-03-08 13:31 | disposition home or self-care (01) ==
LOC: JP.ED 11:11
DX: F41.9 Anxiety disorder, unspecified (principal); I47.20 Ventricular tachycardia, unspecified; I10 Essential (primary) hypertension; Z79.01 Long term (current) use of anticoagulants; Z79.899 Other long term (current) drug therapy
CPT/HCPCS: 36415; 80048; 83735; 84484; 85025; 93005; 93010; 99283; 99285

== ENCOUNTER 2025-01-29 06:13 | Day surgery (SDC) | payer MEDICARE, BC ==
[2025-01-29 06:47] LABS: PLATELET COUNT,PLT 220.0 K/uL (130-375); RED BLOOD CELL COUNT 4.95 M/uL (3.77-5.24); WHITE BLOOD CELL COUNT,WBC 6.4 K/uL (3.2-11.0)
[2025-01-29 07:09] LABS: BLOOD UREA NITROGEN,BUN 16.0 mg/dL (7-18); CARBON DIOXIDE,CO2 32.0 mmol/L (21-32); CHLORIDE,CL 105.0 mmol/L (100-108); CREATININE 1.0 mg/dL (0.6-1.0); EST CRCL DRUG DOSING (CG) 35.52 mL/min; ESTIMATED GFR 55.0 mL/min (>60); GLUCOSE RANDOM 110.0 mg/dL (74-106); POTASSIUM,K 3.7 mmol/L (3.6-5.2); SODIUM,NA 144.0 mmol/L (140-148)
[2025-01-29] MEDS: Nozin Nasal Sanitizer NASBOTH ONE (07:15)
[2025-01-29] MEDS ORDERED: Propofol 200 MG/20 ML SDV ONE (07:19)
[2025-01-29] MEDS ORDERED: fentaNYL 100 MCG/2 ML SDV ONE (07:19)
[2025-01-29] MEDS ORDERED: Midazolam 1 MG/ML 2 ML SDV ONE (07:19)
[2025-01-29] MEDS: Lactated Ringers 1,000 ML IV SCH (07:24)
[2025-01-29] MEDS: Ondansetron 4 MG/2 ML SDV IVPUSH ONE (08:36)
[2025-01-29 09:48] VITALS: BP 159/87; PULSE 70
== END 2025-01-29 10:01 | disposition home or self-care (01) ==
LOC: JP.SDS 06:13
PROVIDERS: ATTEND Specialist
DX: M65.841 Other synovitis and tenosynovitis, right hand (principal); K21.9 Gastro-esophageal reflux disease without esophagitis; I11.0 Hypertensive heart disease with heart failure; I50.9 Heart failure, unspecified; Z88.8 Allergy status to other drugs, medicaments and biological substances; Z79.899 Other long term (current) drug therapy
CPT/HCPCS: 26055; 36415; 80048; 85027; 93005; 93010; A9270; J0665; J0690; J1790; J2250; J2405; J2704; J3010; J7120